=== PATIENT | female | born 1965 | race Caucasian/White ===

== ENCOUNTER 2017-03-05 09:13 | Emergency (ER) | payer BC, MEDICARE ==
--- NOTE | 2017-03-05 09:25 | ED ---
Throat Pain/Nasal Congestion - HPI Summary HPI Summary: 52 female presents to ED with complaints of dental pain and swelling that began Sunday03/03/17, but worsened last night. Patient states she had a dorito get stuck in one of her fractured/missing tooth and feels as though it is what caused her complications. She denies fever, difficulty breathing, difficulty swallowing, discharge and redness. She admits to some swelling of lower left mandible. Has been taking tylenol that helps with the pain with the last dose being at 12am last night. Also has been swishing with salt water. Was worried she had an infection. Denied any other complications at this time. States she wants to see a dentist however has been having issues because she does not have insurance. No PMHx and no other daily medications. - History of Current Complaint Chief Complaint: EDDentalPain Time Seen by Provider: 03/05/17 09:20 Hx Obtained From: Patient Onset/Duration: Sudden Onset, Lasting Days, Still Present, Worse Since Severity: Moderate Cough: None - Allergies/Home Medications Allergies/Adverse Reactions: Allergies Allergy/AdvReac Type Severity Reaction Status Date / Time Penicillins [PCN] Allergy Intermediate Rash Verified 03/05/17 09:48 Sulfamethoxazole Allergy Intermediate Rash Verified 03/05/17 09:48 w/Trimethoprim [From Bactrim] Home Medications: Home Medications NK [No Home Medications Reported] 03/05/17 [History Confirmed 03/05/17] PMH/Surg Hx/FS Hx/Imm Hx Endocrine/Hematology History: Denies: Hx Diabetes Cardiovascular History: Denies: Hx Hypertension Respiratory History: Denies: Hx Chronic Obstructive Pulmonary Disease (COPD) - Immunization History Date of Tetanus Vaccine: UNSURE Date of Influenza Vaccine: NONE Immunizations Up to Date: Yes Infectious Disease History: Denies: Traveled Outside the [place] in Last 30 Days - Family History Known Family History: Positive: None - Social History Alcohol Use: None Substance Use Type: Reports: None Smoking Status (MU): Current Every Day Smoker Type: Cigarettes Review of Systems Constitutional: Negative Positive: Dental Pain Cardiovascular: Negative Respiratory: Negative Gastrointestinal: Negative Skin: Negative Neurological: Negative All Other Systems Reviewed And Are Negative: Yes Physical Exam Triage Information Reviewed: Yes Vital Signs On Initial Exam: Initial Vitals Temp Pulse Resp BP Pulse Ox 98.3 F 96 15 162/84 100 03/05/17 09:16 03/05/17 09:16 03/05/17 09:16 03/05/17 09:16 03/05/17 09:16 BP 138/80 on recheck Vital Signs Reviewed: Yes Appearance: Positive: Well-Appearing, No Pain Distress, Well-Nourished Skin: Positive: Warm, Skin Color Reflects Adequate Perfusion, Dry. Negative: Numb, Cyanosis @, Pale, Erythema @ Head/Face: Positive: Normal Head/Face Inspection - some edema not left mandible/ chin Eyes: Positive: Normal, EOMI, MICHELLE, Conjunctiva Clear ENT: Positive: Normal ENT inspection, Hearing grossly normal, Pharynx normal, TMs normal, Dental tenderness - left molar, missing teeth and fractured teeth, area of possible infection noted left lower molar, brown color on gums, missing tooth, no sign of abscess currently. no discharge, no foreign body Dental: Positive: Gross Decay/Caries @, Dental Fracture @, Other - edema noted left lower mandible/chin. Negative: Percussion Tenderness @, Cellulitis @, Cervical Lymphadenopathy, Bleeding, Foreign body Neck: Positive: Supple, Nontender, No Lymphadenopathy Respiratory/Lung Sounds: Positive: Clear to Auscultation, Breath Sounds Present. Negative: Rales, Rhonchi, Wheezes Cardiovascular: Positive: Normal, RRR, Pulses are Symmetrical in both Upper and Lower Extremities. Negative: Murmur, Rub Abdomen Description: Positive: Nontender, Soft Bowel Sounds: Positive: Present Musculoskeletal: Positive: Normal, Strength/ROM Intact Neurological: Positive: Normal, Sensory/Motor Intact, Alert, Oriented to Person Place, Time Psychiatric: Positive: Affect/Mood Appropriate Diagnostics - Vital Signs Vital Signs Temp Pulse Resp BP Pulse Ox 03/05/17 09:16 98.3 F 96 15 162/84 100 - Laboratory Lab Statement: Any lab studies that have been ordered have been reviewed, and results considered in the medical decision making process. EENT Course/Dx - Course Course Of Treatment: appears to be suffering dental infection. given clindamycin and ibuprofen. continue tylenol/ibu for pain. continue swishing with salt water. recommended using mouth wash and keep good oral hygein. drink plenty of fluids. avoid problematic foods. cool compresses to help with swelling. follow up with dentist, given list of dentist referrals. aware of worsening signs and symptoms to watch out for. - Differential Diagnoses Differential Diagnoses: Dental Abscess, Dental Caries, Foreign Body, Fractured Tooth - Diagnoses Provider Diagnoses: Pain, dental, Dental infection Discharge - Discharge Plan Condition: Stable Disposition: HOME Patient Education Materials: Dental Abscess (ED), Toothache (ED) Referrals: No Primary Care Phys,NOPCP [Primary Care Provider] - [facility] [place] [facility] REFERRAL [Outside] Additional Instructions: Take prescribed antibiotic as directed to rid infection. Tylenol / ibuprofen as desired, alternating, for pain. Take with food. Continue swishing with salt water. Apply cool compresses to area of swelling/pain. Keep good oral hygiene. Recommend use of mouth wash. Drink plenty of fluids. Avoid problematic foods. If symptoms worsen or new symptoms develop please seek medical attention promptly (fever, increased pain, redness, swelling, discharge). Follow up and make an appointment with dentist.
[2017-03-05] MEDS ORDERED: Ibuprofen TAB* 600 MG PO ONE (09:40)
[2017-03-05 10:23] VITALS: BP 138/80
== END 2017-03-05 10:07 | disposition home or self-care (01) ==
LOC: ED 09:13
DX: K04.7 Periapical abscess without sinus (principal); K08.89 Other specified disorders of teeth and supporting structures; F17.210 Nicotine dependence, cigarettes, uncomplicated; Z88.0 Allergy status to penicillin; Z88.2 Allergy status to sulfonamides
CPT/HCPCS: 99281; A9270-GY